=== PATIENT | male | born 1955 | race Caucasian/White ===

== ENCOUNTER 2019-01-25 11:10 | Day surgery (SDC) | payer BC ==
[~2019-01-25 11:10] MED LIST: Dexamethasone 20 MG/5 ML VIAL ONE; Glycopyrrolate 0.2 MG/ML 5 ML SYRINGE ONE; Ketorolac Tromethamine 30 MG/ML VIAL ONE; Lidocaine 1% PF 5 ML VIAL ONE; Ondansetron PF 4 MG/2 ML Vial ONE; PROPOFOL 200 MG/20 ML VIAL ONE; Rocuronium Bromide 10 MG/ML (10ML VIAL) ONE; Succinylcholine Chloride 20 MG/ML 10 ml SYRINGE FS ONE; diphenhydrAMINE 50 MG/ML VIAL ONE
[2019-01-25] MEDS ORDERED: Iothalamate Meglumine 60% 50 ML VIAL FS ONE (11:35)
[2019-01-25] MEDS ORDERED: Lidocaine 2% w/Epinephrine 1:200K 20 ML VIAL ONE (11:35)
[2019-01-25] MEDS ORDERED: Promethazine HCl 25 MG/ML VIAL SLOW IVP PRN (13:02)
[2019-01-25] MEDS ORDERED: Ondansetron HCl/PF 4 MG/2 ML Vial IVP PRN (13:02)
[2019-01-25] MEDS ORDERED: Meperidine HCl/PF 25 MG/ML VIAL SLOW IVP PRN (13:02)
[2019-01-25] MEDS ORDERED: Midazolam HCl 2 mg/2 ml Vial ONE (13:05)
[2019-01-25] MEDS ORDERED: Fentanyl 100 MCG/2 ML VIAL ONE ×2 (13:05→13:09)
--- NOTE | 2019-01-25 13:15 | OP ---
DATE OF PROCEDURE: 01/25/2019 PREOPERATIVE DIAGNOSIS: Acute cholecystitis with dilated common bile duct. POSTOPERATIVE DIAGNOSIS: Acute cholecystitis with dilated common bile duct. PROCEDURE PERFORMED: Laparoscopic cholecystectomy with intraoperative cholangiogram. ANESTHESIA: General. ESTIMATED BLOOD LOSS: Minimal. COMPLICATIONS: None. SPECIMEN: Gallbladder. FINDINGS: Normal cholangiogram. DESCRIPTION OF PROCEDURE: The patient was taken to the operating room and laid supine on the operating room table. After general anesthetic was obtained, the abdomen was shaved, prepped, and draped in a sterile fashion. A curved incision was made below the umbilicus, cautery dissected down to and score the fascia. Abdominal cavity was entered blunt using a Bri clamp. Holding stitch of PDS was placed on each side of the fascia. Roland trocar was placed. High-flow pneumoperitoneum was obtained. Upper midline 5 mm port and 2 right upper quadrant 5 mm ports were placed under direct visualization. Gallbladder was retracted from the gallbladder fossa. The peritoneum was opened anteriorly and posteriorly. Critical view triangle was seen showing only the cystic duct and cystic artery branching medial to lateral, no other branching structures. A clip was placed on the cystic duct. A small ductotomy was made just proximal to that. A cholangiocatheter was brought in through a separate stab incision, placed in the cystic duct and a cholangiogram was performed, which showed good contrast flow into the duodenum, right and left hepatic duct system without obstruction. Cholangiocatheter was removed and 2 clips were placed proximally on the cystic duct. Cystic duct cut using laparoscopic scissors. Cystic artery was taken using 2 clips proximally and one clip distally and cut using laparoscopic scissors. Cautery was used to dissect the gallbladder from the gallbladder fossa. Gallbladder was placed in an Endo Catch bag and brought out through the Roland. There was no bleeding or bile in the liver bed. All port sites were infiltrated using local anesthetic. All ports were removed under camera visualization. Pneumoperitoneum was let down. PDS was used to close the fascial defect below the umbilicus. All incisions were irrigated and closed using 4-0 Monocryl and Dermabond. The patient was sent to Recovery in stable condition. All instrument counts, needle counts, and lap counts were correct. Job ID: [id number]
[2019-01-25] MEDS ORDERED: HYDROcodone/Acetaminophen 5/325 mg Tablet ONE (14:10)
--- NOTE | 2019-01-25 15:56 | RAD ---
XR Cholangiogram in Surgery History: Cholecystectomy Comparison: None. Findings: No diagnostic images were obtained. Impression: Total fluoroscopy time: 24 seconds.
== END 2019-01-25 14:35 | disposition home or self-care (01) ==
LOC: SDC 11:10
PROVIDERS: ATTEND Surgery
DX: K80.12 Calculus of gallbladder with acute and chronic cholecystitis without obstruction (principal); K83.8 Other specified diseases of biliary tract
CPT/HCPCS: 47532; 88304; J0131; J0690; J1100; J1200; J1885; J2001; J2250; J2405; J2704; J3010

== ENCOUNTER 2023-09-04 13:15 | Outpatient (CLI) | payer BC | END 2023-09-04 13:16 | disposition home or self-care (01) | LOC: SCSRAD 13:15 | PROVIDERS: ATTEND Family Medicine | DX: R05.9 Cough, unspecified (principal); J18.1 Lobar pneumonia, unspecified organism | CPT/HCPCS: 71046 ==